=== PATIENT | male | born 1955 | race Caucasian/White ===

== ENCOUNTER 2024-08-29 05:57 | Day surgery (SDC) | payer OTHER, SELFPAY ==
[2024-08-15 08:56] VITALS: BMI 26.8
[2024-08-15 09:29] LABS: % Basophils 0.8 % (0-2); % Eosinophils 5.2 % (0-6); % Immature Granulocytes 0.2 % (0-0.5); % Lymphocytes 24.3 % (20.5-51.1); % Monocytes 8.6 % (1.7-9.3); % Neutrophils 60.9 % (42.2-75.2); Absolute Eosinophils 0.3 10^3/uL (0-0.7); Absolute Lymphocytes 1.2 10^3/uL (1.2-3.4); Absolute Monocytes 0.4 10^3/uL (0.1-0.6); Absolute Neutrophils 2.9 10^3/uL (1.4-6.5); Hematocrit 45.3 % (39.0-52.0); Hemoglobin 15.4 g/dL (13.0-18.0); Mean Corpuscular Hgb 31.1 pg (27.0-31.0); Mean Corpuscular Volume 91.5 fL (80.0-94.0); Mean Platelet Volume 8.9 fL (7.4-10.4); Nucleated Red Blood Cells % 0 % (-); Platelet Count 217 10^3/uL (130-400); Red Blood Cell Count 4.95 10^6/uL (4.70-6.10); Red Cell Dist. Width 13.1 % (11.5-14.5); White Blood Cell Count 4.8 10^3/uL (4.8-10.8)
[2024-08-15 09:38] LABS: INR 2.16; PT 24.2 Sec (11.4-14.6)
[2024-08-15 09:48] LABS: ALT (SGPT) 43 U/L (0-50); AST (SGOT) 29 U/L (17-59); Albumin 4.6 g/dl (3.5-5.0); Alkaline Phosphatase 111 U/L (38-126); Blood Urea Nitrogen 15 mg/dl (9-20); Calcium 10.2 mg/dl (8.4-10.2); Carbon Dioxide 29 mmol/L (22-30); Chloride 103 mmol/L (98-107); Estimated Creatinine Clearance 85 ml/min; Glucose 83 mg/dl (70-99); Magnesium 2.2 mg/dl (1.6-2.3); Potassium 4.3 mmol/L (3.5-5.1); Sodium 139 mmol/L (135-145); Total Bilirubin 1.8 mg/dl (0.2-1.3); Total Protein 7.6 g/dl (6.3-8.2); eGFR > 60.00
[2024-08-29] VITALS (11 sets, daily range): BP systolic 107–151; BP diastolic 55–93; BMI 26.6
--- NOTE | 2024-08-29 07:55 | ITS.CL.ABL ---
Anodic Treater - Ablation
Ablation
Procedure Report:
ELECTROPHYSIOLOGIC STUDY AND POSSIBLE ABLATION
DATE: 08/29/24
Primary Boilermaker Helper: Dr Kyler Tubbs
INDICATION:
Symptomatic Atrial Fibrillation.
Persistent, less than 1 year in duration
HISTORY: See H and P.
Symptomatic AF, poorly controlled with attempted medical therapy.
He has been referred for further evaluation and management of symptomatic atrial fibrillation.
He has been initiated on oral anticoagulation, Xarelto 20 mg daily which she is tolerating well.
He underwent echocardiogram at [facility] on July 05, 2024 finding LVEF of 55 to 60%, normal RV size and function, moderately dilated� right atrium normal function of #36 mitral valve ring with [place]-Raulito needle cords to A2 and P2.� Mild to
moderate tricuspid regurgitation.
I have personally reviewed EKG from July 07, 2024 finding atrial fibrillation with a slow ventricular rate of 49 bpm.� There is nonspecific T wave abnormalities.� �compared to prior EKG of July 16, 2023 atrial fibrillation has replaced sinus
rhythm.
He is an avid cyclist any describes that over the past 6 months or so he has noted progressively worsening exertional fatigue and is concerned that his symptoms are not be related to atrial fibrillation.� Of note a very recent echocardiogram from
June 15, 2024 finds LVEF of 55 to 60%, normal RV size and function, moderately dilated� right atrium normal function of #36 mitral valve ring with [place]-Raulito needle cords to A2 and P2.� Mild to moderate tricuspid regurgitation.
Of note, in addition to mitral valve repair, he also underwent ablative modified maze with AtriCure on 09/06/2018.
HAS-BLED: 1
Age
CHADSVASc: 1
Age
PRESENTING RHYTHM: AF
HISTORY: See H and P.
Symptomatic AF, poorly controlled with attempted medical therapy.
ANTICOAGULATION: apixaban
'TIME-OUT': called and confirmed.
SEDATION/ANESTHESIA: provided via the anesthesia department using general anesthesia.
PROCEDURE:
Ultrasound Guidance with real-time visualization of needle insertion and vessel patency performed by me for femoral venous Vascular Access.
Under real-time US guidance, the needle was advanced with negative pressure into the vein. The needle was seen entering the vessel lumen with a good return of dark red flow, the syringe was removed, non-pulsatile, dark red blood low was noted and
the wire was passed without difficulty, then the needle was removed. US confirmed the wire was in the vein, not going into an artery,
Images were taken and saved for the patient's permanent record. Imaging findings typical femoral venous anatomy. Direct visualization of needle puncture into the femoral vein was observed and recorded.
A decapolar CS catheter was placed within the CS for mapping and pacing.
The intracardiac ultrasound catheter was positioned in the RA for continuous intracardiac ultrasound imaging.
Heparin bolus and infusion to target ACT at 300 -350 seconds was administered. Transseptal puncture was performed. This entailed advancing a sheath with dilator into the superior vena cava and withdrawing both (monitoring intracardiac ultrasound,
fluoroscopy and tip pressure) with the tip oriented toward the atrial septum. The fossa ovalis was engaged (indicated by sudden displacement of the sheath tip as well as tenting of the fossa seen on intracardiac ultrasound).
Transseptal puncture was performed. Left atrial catheter position was confirmed by echocardiographic imaging, pressure monitoring (LA mean pressure 12 mm Hg) and fluoroscopy. The sheath was advanced over the dilator and positioned in the left
atrium.
The [employer] multipolar mapping/ablation Sphere-9 catheter was positioned through the transseptal sheath for high density mapping.
Catheter positioning was guided and confirmed using both I.C.E. and fluoroscopy.
Geometry and voltage mapping was performed using the [employer] mapping system for three-dimensional electroanatomical mapping.
Patient had undergone AtriCure maze at the time of her mitral valve repair in 2019. Mapping now finds reconnection at the right sided pulmonary veins posteriorly, the left veins are electrically isolated. The posterior wall of the left atrium is
not isolated with areas of patchy scarring and patchy fractionated electrograms.
An ablation strategy to reisolate the pulmonary veins and additional ablation set to isolate the posterior wall was then undertaken. This involved pulse electric field ablation lesions being delivered along the posterior sections of the right
superior and right inferior pulmonary veins to isolate the veins electrically. Then multiple lesions were given at the posterior wall of the left atrium from roof to floor and from left sided antrum to right sided antrum electrically isolating the
posterior wall. Cardioversion at 200 J then restored sinus rhythm. Remapping as well as pacing demonstrated electrically isolated each PV ostia (LSPV, LIPV, RSPV, RIPV) as well as entrance and exit block from the posterior wall of the left atrium.
Programmed electrical stimulation which included burst atrial pacing as well as delivery of atrial decremental extrastimuli down to atrial ERP failed to induce any sustained arrhythmias.
I.C.E. :
Pre-Ablation Post-Ablation
LVEF: 55 % 55 %
WMA: none none
Pericardial effusion: none none
COMPLICATIONS:
none
SUMMARY:
- Mapping and ablation to isolate the PVs
- Additional AF ablation set after PVI.
- 3-D Electroanatomical Mapping
- Intracardiac Ultrasound
- Ultrasound guidance for vascular access
Post ablation, I discussed today's findings and results with the patient's , Tabatha.
RECOMMENDATIONS:
- Observe in monitored bed.
- Maintain oral anticoagulation.
- Flecainide will be discontinued
- Office visit with [ ] in [ ] months.
- Continue cardiovascular care with [ ]
Copy to: Dr Kyler Tubbs
[2024-08-29 08:50] LABS: ACT-LR - POC 261 Seconds (116-155)
[2024-08-29 09:11] LABS: ACT-LR - POC 285 Seconds (116-155)
--- NOTE | 2024-08-29 15:57 | W.PN.UPDATE ---
Update Note
Progress Note Update
Pt seen post PFA. Right groin site without ht/bleeding, OOB ambulating. Difficulty starting urination post procedure, but now is urinating more frequently with increased amounts, no dysuria. Post EKG NSR w/1st deg AVB, PAC/PVC, no acute changes. One
dose Xarelto at 4pm, then resume regular scheduled time in AM. Continue other meds as before. Followup w/Dr. Tubbs as scheduled. Home today if groin site/tele remain stable.
[2024-08-29] MEDS: XARELTO 20 MG PO (16:04)
== END 2024-08-29 16:05 | disposition home or self-care (01) ==
LOC: CATH 05:57
PROVIDERS: ATTENDING PHYSICIAN Internal Medicine Cardiovascular Disease; FAMILY PHYSICIAN Internal Medicine; OTHER PHYSICIAN Internal Medicine Cardiovascular Disease
DX: I48.0 Paroxysmal atrial fibrillation (principal); I47.20 Ventricular tachycardia, unspecified; I11.9 Hypertensive heart disease without heart failure; I25.10 Atherosclerotic heart disease of native coronary artery without angina pectoris; M19.90 Unspecified osteoarthritis, unspecified site; Z96.651 Presence of right artificial knee joint; Z79.899 Other long term (current) drug therapy; Z79.01 Long term (current) use of anticoagulants
CPT/HCPCS: C1894; C1766; C1730; C1892; C1733; 36415; 75572; 76937; 80053; 83735; 85025; 85347; 85610; 86850; 86900; 86901; 93005; 93656; 93657; Q9967

== ENCOUNTER 2025-05-19 08:04 | Day surgery (SDC) | payer OTHER, SELFPAY ==
[2025-05-09 09:55] VITALS: BMI 26.0
[2025-05-09 10:15] LABS: Hematocrit 44.4 % (39.0-52.0); Hemoglobin 15.2 g/dL (13.0-18.0); Mean Corp Hgb Conc. 34.2 g/dL (33.0-37.0); Mean Corpuscular Volume 93.1 fL (80.0-94.0); Nucleated Red Blood Cells % 0 % (-); Platelet Count 201 10^3/uL (130-400); Red Cell Dist. Width 13.0 % (11.5-14.5)
[2025-05-09 10:25] LABS: INR 1.99; PT 22.8 Sec (11.4-14.6)
[2025-05-09 13:03] LABS: ALT (SGPT) 43 U/L (0-50); AST (SGOT) 30 U/L (17-59); Albumin 4.7 g/dl (3.5-5.0); Alkaline Phosphatase 102 U/L (38-126); Blood Urea Nitrogen 19 mg/dl (9-20); Calcium 9.9 mg/dl (8.4-10.2); Carbon Dioxide 30 mmol/L (22-30); Chloride 103 mmol/L (98-107); Estimated Creatinine Clearance 83 ml/min; Glucose 65 mg/dl (70-99); Magnesium 2.2 mg/dl (1.6-2.3); Potassium 4.4 mmol/L (3.5-5.1); Sodium 137 mmol/L (135-145); Total Protein 7.9 g/dl (6.3-8.2); eGFR > 60.00
[2025-05-19] VITALS (9 sets, daily range): BP systolic 100–131; BP diastolic 63–94; BMI 25.1
[2025-05-19] MEDS: TYLENOL 1000 MG PO (08:53)
--- NOTE | 2025-05-19 09:50 | ITS.CL.ABL ---
Turnstile Collector - Ablation
Ablation
Procedure Report:
ELECTROPHYSIOLOGIC STUDY AND POSSIBLE ABLATION
DATE: May 19, 2025
Primary Feed Mill Operator: Dr Kyler Tubbs
INDICATION:
Symptomatic Atrial Fibrillation.
HISTORY:
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 With escalating dose isoproterenol and aggressive programmed stimulation no SVT could be induced,
there were self terminating runs of atrial fibrillation.
Patient had undergone AtriCure maze at the time of his mitral valve repair in 2019 for severe symptomatic mitral regurgitation.
MV repair with [place]-Raulito NeoChords to A2 (x2) and P2 (x2) and 36mm annuloplasty ring; and left modified MAZE (09/06/18)
He subsequently developed persistent long-lasting atrial fibrillation which was felt to be just less than 1 year in duration when he underwent mapping and ablation August 29, 2024. At that study, electrical reconnection was found at the right sided
pulmonary veins posteriorly, the left veins were electrically isolated. The posterior wall of the left atrium was not isolated with areas of patchy scarring and patchy fractionated electrograms. He underwent pulsed electric field ablation
utilizing sphere 9 catheter to re-isolate the veins and to electrically isolate the posterior wall of the left atrium.
He recurred with atrial fibrillation. He was on amiodarone for 3 months, amiodarone held in sinus rhythm but when he stopped amiodarone on January 17, 2025, he recurred by February feeling poorly again.
He is an avid cyclist and has had to stop cycling at times due to recurrent atrial fibrillation.
- Echocardiogram at [facility] on July 05, 2024 finding LVEF of 55 to 60%, normal RV size and function, moderately dilated� right atrium normal function of #36 mitral valve ring with [place]-Raulito needle cords to A2 and P2.� Mild to
moderate tricuspid regurgitation.
HAS-BLED: 1
Age
CHADSVASc: 1
Age
ANTICOAGULATION: Rivaroxaban 20 mg daily
'TIME-OUT': called and confirmed.
SEDATION/ANESTHESIA: provided via the anesthesia department using general anesthesia.
PROCEDURE:
Ultrasound Guidance with real-time visualization of needle insertion and vessel patency performed by in for femoral venous Vascular Access.
Under real-time US guidance, the needle was advanced with negative pressure into the vein. The needle was seen entering the vessel lumen with a good return of dark red flow, the syringe was removed, non-pulsatile, dark red blood low was noted and
the wire was passed without difficulty, then the needle was removed. US confirmed the wire was in the vein, not going into an artery,
Images were taken and saved for the patient's permanent record. Imaging findings typical femoral venous anatomy. Direct visualization of needle puncture into the femoral vein was observed and recorded.
He presents a regular narrow QRS complex tachycardia at 320 ms
A decapolar CS catheter was placed within the CS for mapping and pacing.
The intracardiac ultrasound catheter was positioned in the RA for continuous intracardiac ultrasound imaging.
Heparin bolus and infusion to target ACT at 300 -350 seconds was administered. Transseptal puncture was performed. This entailed advancing a sheath with dilator into the superior vena cava and withdrawing both (monitoring intracardiac ultrasound,
fluoroscopy and tip pressure) with the tip oriented toward the atrial septum. The fossa ovalis was engaged (indicated by sudden displacement of the sheath tip as well as tenting of the fossa seen on intracardiac ultrasound).
Transseptal puncture was performed. Left atrial catheter position was confirmed by echocardiographic imaging, pressure monitoring (LA mean pressure 8 mm Hg) and fluoroscopy. The sheath was advanced over the dilator and positioned in the left
atrium.
The Sphere 9 multipolar mapping/ablation Sphere-9 catheter was positioned through the transseptal sheath for high density mapping.
Geometry and voltage mapping was performed using the [employer] mapping system for three-dimensional electroanatomical mapping.
Catheter positioning was guided and confirmed using both I.C.E. and fluoroscopy.
High density electroanatomical three-dimensional mapping demonstrated four PVs: LSPV, LIPV, RSPV, RIPV.
High density three-dimensional electroanatomical mapping finds electrical reconnection at the left superior pulmonary vein and incomplete electrical isolation of the left atrium.
Ablation strategy included PVI as well as mapping for extra PV contributors to atrial fibrillation which would also be targeted if present.
Pulsed electric field energy was delivered via the sphere 9 catheter to electrically isolate the left superior pulmonary vein.
After accomplishing pulmonary venous isolation, mapping identified additional areas likely to be extra PV contributors to atrial fibrillation. These areas demonstrated patchy low voltage as well as complex fractionated electrograms. These areas can
be sites for the formation of rotors which can drive and maintain atrial fibrillation. These areas are known to be significant contributors to initiation and perpetuation of atrial fibrillation.
Additional energy applications/additional ablation sets targeted extra PV contributors to atrial fibrillation.
Targets for additional PFA ablation included:
LA posterior wall was incompletely isolated and delivery of pulsed laser field energy to the floor posteriorly at the left atrium extending to the base of the left inferior pulmonary vein was able to completely isolate the posterior wall of
the left atrium.
After ablation of the posterior wall, additional targets were addressed:
The ridge of tissue between the left atrial appendage and the left sided pulmonary veins (Ligament of Mak )
These areas were ablated using pulsed electric field energy eliminating the extra PV contributors to atrial fibrillation.
He remained in the atrial tachycardia. Entrainment from the left atrium finds the left atrium to be outside the tachycardia circuit. Activation mapping finds breakthrough from the interatrial septum right to left.
The sphere 9 mapping and ablation catheter was then withdrawn from the left atrium and mapping of the right atrium was undertaken.
During mapping in the right atrium the tachycardia spontaneously or possibly bump terminated.
Programmed electrical stimulation was able to reinduce an atrial tachycardia which at first was somewhat irregular but then settled into a regular atrial tachycardia which was extensively mapped. Activation sequence is consistent with
counterclockwise right atrial flutter. Entrainment from the CTI finds this to be within the tachycardia circuit.
Next CTI ablation was undertaken with the sphere 9 catheter. Energy was delivered at approximately 6:00 in the 30 degree UPPER SORBIAN position delivering radiofrequency energy closure to the tricuspid annulus and pulsed electric field energy closer to the
IVC. During energy delivery the tachycardia slowed and with further energy delivery completing the ablation line the tachycardia terminated to sinus rhythm.
Differential pacing from both sides of the ablation line finds electrical block, bidirectional block.
*Of note, there is extensive scarring at the posterior wall of the right atrium. Also of note echocardiogram earlier this year demonstrated a moderately enlarged right atrium. This is likely a sequelae from his cardiothoracic surgery. Given the
scarring observed in the right atrium, he remains at risk for recurrent atrial arrhythmias.
I.C.E. :
Pre-Ablation Post-Ablation
LVEF: 55 % 55 %
WMA: none none
Pericardial effusion: none none
LA Pressure (mmHg) 8
COMPLICATIONS:
None
SUMMARY:
- Mapping and ablation to isolate the PVs resulting in electrical isolation of the pulmonary veins
- Additional AF ablation sets X 2 after PVI (LA posterior wall, ligament of Mak) resulting in elimination of the targeted extra PV contributors to atrial fibrillation.
- Mapping and ablation of second tachycardia (right atrial macro reentrant flutter) terminating the tachycardia to sinus rhythm and at the end of ablation there is bidirectional block at the CTI
- 3-D Electroanatomical Mapping
- Intracardiac Ultrasound
- Ultrasound guidance for vascular access
Post ablation, I discussed today's findings and results with the patient's , Tabatha.
RECOMMENDATIONS:
- Observe in monitored bed.
- Maintain oral anticoagulation.
- Office visit with KIMMY Loco in 3 to 4 months and thereafter follow-up with primary combiner, Dr. Kyler Tubbs.
*Of note, there is extensive scarring at the posterior wall of the right atrium. Also of note echocardiogram earlier this year demonstrated a moderately enlarged right atrium. This is likely a sequelae from his cardiothoracic surgery. Given the
scarring observed in the right atrium, he remains at risk for recurrent atrial arrhythmias.
Copy to:
Primary Feed Mill Operator: Dr Kyler Tubbs
[2025-05-19 11:06] LABS: ACT-LR - POC 306 Seconds (116-155)
[2025-05-19 11:26] LABS: ACT-LR - POC 292 Seconds (116-155)
[2025-05-19 11:48] LABS: ACT-LR - POC 314 Seconds (116-155)
[2025-05-19 12:09] LABS: ACT-LR - POC 351 Seconds (116-155)
--- NOTE | 2025-05-19 15:10 | W.PN.UPDATE ---
Update Note
Progress Note Update
Pt seen post PFA. Right groin with vascade closure, no ht/bleeding, non tender. OOB ambulating. Urinating without difficulty. Post EKG NSR w/1st deg AVB, no acute changes. Resume Xarelto tonight. Followup w/Dr. Tubbs as scheduled. Home today if
groin site/tele remain stable.
== END 2025-05-19 15:30 | disposition home or self-care (01) ==
LOC: CATH 08:04
PROVIDERS: ATTENDING PHYSICIAN Internal Medicine Cardiovascular Disease; FAMILY PHYSICIAN Internal Medicine; OTHER PHYSICIAN Internal Medicine Cardiovascular Disease
DX: I48.19 Other persistent atrial fibrillation (principal); I47.19 Other supraventricular tachycardia; I49.3 Ventricular premature depolarization; M19.90 Unspecified osteoarthritis, unspecified site; E78.5 Hyperlipidemia, unspecified; Z79.899 Other long term (current) drug therapy; Z79.01 Long term (current) use of anticoagulants
CPT/HCPCS: C1733; C1769; C1766; C1730; C1892; C1894; C1759; 36415; 80053; 83735; 85025; 85347; 85610; 86850; 86900; 86901; 93005; 93655; 93656; 93657; C1760